=== PATIENT | female | born 1965 | race Caucasian/White ===

== ENCOUNTER 2018-07-30 22:59 | Emergency (ER) | payer OTHER ==
[~2018-07-30] VITALS: Ht 160 cm; Wt 83.0 kg
[2018-07-30 23:46] LABS: ABSOLUTE EOSINOPHILS 0.1 thou/uL (0.0-0.7); ABSOLUTE LYMPHOCYTES 2.3 thou/uL (0.8-5.3); ABSOLUTE MONOCYTES 0.3 thou/uL (0.0-1.2); ABSOLUTE NEUTROPHILS 3.8 thou/uL (1.6-8.1); BASOPHILS 0.7 %; EOSINOPHILS 1.4 %; HEMATOCRIT 44.2 % (37.0-47.0); LYMPHOCYTES 34.7 %; MCH 30.4 pg (26.0-34.0); MCHC 33.9 g/dL (28.0-37.0); MCV 89.7 fL (80.0-100.0); MONOCYTES 4.7 %; NUCLEATED RBCS 0 /100WBC; PLATELET COUNT* 283 thou/uL (150-400); POLYS 58.5 %; RBC 4.93 mil/uL (4.20-5.00); RDW-CV 12.7 % (10.5-14.5); WBC 6.5 thou/uL (4.0-11.0)
[2018-07-30 23:56] LABS: INR 0.9; PROTIME 9.7 Seconds (9.20-11.50)
[2018-07-31 00:03] LABS: ANION GAP 9 mmol/L (7-16); BUN 20 mg/dL (7-18); CALCIUM 9.2 mg/dL (8.5-10.1); CHLORIDE 101 mmol/L (98-107); CO2 31 mmol/L (21-32); GLUCOSE 117 mg/dL (70-99); POTASSIUM 3.5 mmol/L (3.5-5.1); SODIUM 141 mmol/L (136-145)
[2018-07-31 00:04] LABS: ALBUMIN 3.9 g/dL (3.4-5.0); ALKALINE PHOSPHATASE 83 U/L (46-116); SGOT 22 U/L (15-37); SGPT 47 U/L (30-65); TOTAL BILIRUBIN 1.1 mg/dL (<0.1-1.0); TOTAL PROTEIN 7.9 g/dL (6.4-8.2); TROPONIN-I LEVEL <0.06 ng/mL (<0.06)
[2018-07-31] MEDS ORDERED: LOPRESSOR50 PO (01:30)
[2018-07-31 01:51] VITALS: BP 139/78
[2018-07-31] MEDS ORDERED: PREDNISONE50 MG PO (02:27)
--- NOTE | 2018-07-31 10:21 | EKG ---
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
== END 2018-07-31 01:51 | disposition home or self-care (01) ==
LOC: M.ERS 22:59
PROVIDERS: Emergency Medicine
DX: I10 Essential (primary) hypertension (principal); Z88.5 Allergy status to narcotic agent